=== PATIENT | female | born 1970 | race African-American/Black ===

== ENCOUNTER 2016-08-10 09:52 | Emergency (ER) | payer OTHER ==
[2016-08-10 08:42] LABS: BASOPHILS 0.1 %; BASOPHILS ABSOLUTE 0.01 10/3/uL (0.0-0.16); EOSINOPHILS 0.2 %; EOSINOPHILS ABSOLUTE 0.02 10/3/uL (0.0-0.53); IMMATURE GRANULOCYTES 0.5 %; IMMATURE GRANULOCYTES ABSOLUTE 0.04 10/3/uL (0.0-0.11); LYMPHOCYTES 23.3 %; LYMPHOCYTES ABSOLUTE 1.92 10/3/uL (0.67-4.30); MEAN CORPUS HGB CONC 31.9 g/dL (32.0-36.0); MEAN CORPUSCULAR HEMOGLOB 26.5 pg (26.0-34.0); MEAN PLATELET VOLUME 9.7 fL (9.2-13.0); MONOCYTES 9.5 %; MONOCYTES ABSOLUTE 0.78 10/3/uL (0.21-1.20); NEUTROPHILS 66.4 %; NEUTROPHILS ABSOLUTE 5.46 10/3/uL (2.02-8.40); PLATELET COUNT 266 10/3/uL (150-400); RBC DISTRIBUTION WIDTH 14.2 % (12.0-16.0); WHITE BLOOD CELLS 8.2 10/3/uL (4.5-10.5)
[2016-08-10 08:43] LABS: HEMATOCRIT 36.4 % (36.0-48.0); HEMOGLOBIN 11.6 g/dL (12.0-16.0); MEAN CORPUSCULAR VOLUME 83.3 fL (80-100); RED CELL COUNT 4.37 10/6/uL (4.0-5.6)
[2016-08-10 08:44] LABS: MANUAL DIFF NO %
[2016-08-10 09:01] LABS: BUN (BLOOD UREA NITROGEN) 16 MG/DL (6-23); CHEST PAIN PROFILE TAT 0 Hrs 23 Mins; CHLORIDE, SERUM 102 MMOL/L (96-112); CO2 (CARBON DIOXIDE) 29 MMOL/L (24-34); CREATININE 1.16 MG/DL (0.55-1.02); GFR AFRICAN AMERICAN 66 ML/MIN (>=60); GFR NON AFRICAN AMERICAN 57 ML/MIN (>=60); GLUCOSE, SERUM 316 MG/DL (60-99); POTASSIUM, SERUM 3.6 MMOL/L (3.5-5.3); SODIUM, SERUM 138 MMOL/L (135-148); TROPONIN I <0.02 NG/ML (<0.05)
[2016-08-10 10:53] LABS: ASCORBIC ACID (UR NOT ORDER) NEG (NEG); BILIRUBIN, URINE NEGATIVE (NEG); ER URINALYSIS TAT 0 Hrs 15 Mins; KETONE, URINE NEGATIVE (NEG); LEUKOCYTE ESTERASE(NOT OR NEG (NEG); NITRITE (URINE) NEG (NEG); WBC (NOT ORDERED) (RFLEX) 2 (0-5)
[2016-08-10 11:27] LABS: PARTIAL THROMBO TIME 28.6 SEC (22.5-37.2); PROTIME (NOT ORD) 13.5 SEC (12.0-14.5)
== END 2016-08-10 12:35 | disposition home or self-care (01) ==
LOC: ER 09:52
PROVIDERS: Nurse Practitioner Family
DX: R07.89 Other chest pain (principal); E11.65 Type 2 diabetes mellitus with hyperglycemia; J45.909 Unspecified asthma, uncomplicated; I12.9 Hypertensive chronic kidney disease with stage 1 through stage 4 chronic kidney disease, or unspecified chronic kidney disease; N18.9 Chronic kidney disease, unspecified; K21.9 Gastro-esophageal reflux disease without esophagitis; F32.9 Major depressive disorder, single episode, unspecified; Z86.73 Personal history of transient ischemic attack (TIA), and cerebral infarction without residual deficits; Z87.01 Personal history of pneumonia (recurrent)
CPT/HCPCS: 71010; 80048; 81001; 83605; 83735; 84484; 85025; 85610; 85730; 87040; 93005; 96374; 96375; 99284; A9270-GY; J1885; J2405